=== PATIENT | female | born 1985 | race Caucasian/White ===

== ENCOUNTER 2017-01-22 19:24 | Emergency (ER) | payer MEDICAID ==
[2017-01-22 19:39] VITALS: RESP 16
--- NOTE | 2017-01-22 20:40 | EDPHY ---
H & P Time Seen by Provider: 01/22/17 19:39 HPI/ROS: 31-year-old female presents complaining of cold sore on her lower lip on the right. She has also noticed a lump under her right jaw, as well as a sore throat. No fevers or chills. No cough. Review of systems As per HPI General no fever no chills no weakness HEENT no eye pain no eye discharge. No eye redness, positive sore throat Respiratory no cough, no shortness of breath Cardiac no chest pain, no peripheral edema GI no abdominal pain, no diarrhea, no constipation, no nausea, no vomiting no flank pain, no hematuria, no dysuria Musculoskeletal no myalgias, no joint pain Heme no easy bruising, no easy bleeding Endo no polyuria, no polydipsia Skin positive rashes, no pruritus Neuro no syncope, no dizziness, no headaches Psych is no suicidal ideation, no homicidal ideation Past Medical/Surgical History: Seasonal allergies Social History: Alcohol socially denies drug use Smoking Status: Never smoked Physical Exam: 31-year-old female alert and oriented in no acute distress nontoxic appearance afebrile Atraumatic normocephalic Oropharynx mild erythema no edema no exudate no trismus, tolerating own secretions Right lower lip-approximately 1 cm erythematous lesion at lateral aspect of right lower lip consistent with cold sore/fever blister, non fluctuant No lesions noted on oral mucosa Submandibular lymph node on right small, mobile Neck supple Lungs clear to auscultation bilaterally Heart regular rate and rhythm Skin no rash Constitutional: Initial Vital Signs Temperature (C) 37.1 C 01/22/17 19:30 Heart Rate 62 01/22/17 19:30 Respiratory Rate 16 01/22/17 19:30 Blood Pressure 137/78 H 01/22/17 19:30 O2 Sat (%) 96 01/22/17 19:30 O2 Delivery Mode Room Air Allergies/Adverse Reactions: No Known Allergies Allergy (Unverified 01/22/17 19:33) Home Medications: Medication Instructions Recorded Acyclovir 400 mg PO 5XD #35 tablet 01/22/17 Control Pill 01/22/17 Loratadine [Claritin] 10 mg PO 01/22/17 Medical Decision Making ED Course/Re-evaluation: Patient seen and evaluated for lesion on right lower lip associated with sore throat. Differential diagnosis considered Viral pharyngitis, lip abscess, cold sore, fever blister, canker sore, shingles Impression Oral labial herpes versus other viral cold sore with local lymphadenopathy right submandibular Plan Acyclovir 800 p.o. now Rx for acyclovir 400 p.o. 5 times per day for 7 days Return if worsening Follow up with primary care physician - Data Points Medications Given: Discontinued Medications Acyclovir (Acyclovir) 800 mg PO EDNOW ONE Stop: 01/22/17 20:42 Last Admin: 01/22/17 20:51 Dose: Not Given Acyclovir (Zovirax 400 Mg Prepack #4) 1 btl TAKEHOME EDNOW ONE Stop: 01/22/17 20:53 Last Admin: 01/22/17 20:57 Dose: 1 btl Departure - Departure Disposition: Home, Routine, Self-Care Clinical Impression: Cold sore, Herpes virus infection of oral mucosa Condition: Good Instructions: Oral Herpes Simplex Virus Infections (ED) Referrals: NONE *PRIMARY CARE P,. [Primary Care Provider] - As per Instructions Prescriptions: Acyclovir 400 mg PO 5XD #35 tablet
[2017-01-22] MEDS ORDERED: ACYCLOVIR 400 MG TAB PO ONE (20:41)
[2017-01-22] MEDS ORDERED: ACYCLOVIR 400 MG PREPACK#4 BTL TAKEHOME ONE ×2 (20:49→20:52)
[2017-01-22 21:00] VITALS: BP 142/90; PULSE 66; TEMP 98.4; O2SAT 95
== END 2017-01-22 20:59 | disposition home or self-care (01) ==
LOC: CED 19:24
DX: B00.1 Herpesviral vesicular dermatitis (principal)

== ENCOUNTER 2018-12-09 14:27 | Emergency (ER) | payer MEDICAID | END 2018-12-09 14:52 | disposition home or self-care (01) | LOC: CED 14:27 ==